=== PATIENT | female | born 1950 | race Caucasian/White ===

== ENCOUNTER 2016-10-08 12:49 | Day surgery (SDC) | payer MEDICARE, OTHER, MEDICAID ==
[~2016-10-08] VITALS: Ht 167.6 cm; Wt 73.5 kg
[~2016-10-08 12:49] MED LIST: 0.9% Sodium Chloride 1,000 ML IV SCH; Sodium Chloride LOK Flush 10 mL Syringe IV PRN; fentaNYL-PF 50 mCg/mL 2 mL Inj IVPUSH PRN
[2016-10-08 13:05] VITALS: BP 161/90; PULSE 87; RESP 16; O2SAT 97
[2016-10-08] MEDS ORDERED: SYN75 PO (13:05)
[2016-10-08] MEDS ORDERED: THYR25PO4 MC (13:05)
[2016-10-08] MEDS ORDERED: SERT50TA PO (13:05)
[2016-10-08 14:05] VITALS: BP 114/65; PULSE 65; RESP 15; O2SAT 94
[2016-10-08 14:15] VITALS: BP 102/64; PULSE 60; RESP 15; O2SAT 93
[2016-10-08 14:25] VITALS: BP 102/60; PULSE 58; RESP 15; O2SAT 94
--- NOTE | 2016-10-08 14:31 | ENDO ---
[address] [address] ENDOSCOPY PROCEDURE PATIENT: GEOVANY VAZQUEZ : 1950 MR#: [id number] ADMIT: 10/08/2016 JOB ID: [id number] DATE: 10/08/2016 PRIMARY PROVIDER: Walt Tinsley MD PROCEDURE: Esophagogastroduodenoscopy and a colonoscopy. INDICATIONS: A 65-year-old female with a history of cirrhosis reporting for variceal screening. She additionally has a remote history of rectal cancer status post XRT and low anterior resection with primary anastomosis back in around 1999. She has had intermittent incontinence of feces. Following our discussion in clinic, she has actually had some improvement with the initiation of fiber supplementation. EQUIPMENT: GIF H 180 and a PCF H 180 AL. SEDATION: 1. 8 mg Versed. 2. 175 mcg fentanyl. COMPLICATIONS: None identified. BOWEL PREPARATION: Fair, adequate examination. PROCEDURAL INFORMATION: After the risks and benefits were explained, written and verbal informed consent was obtained. The patient was brought into the endoscopy suite and placed into the left lateral decubitus position. Sedation was achieved using the above-stated medications with the addition of oxygen via nasal cannula. The scope was introduced into the mouth through the bite block, and advanced to the second portion of the duodenum. The scope was slowly withdrawn to carefully examine the mucosa for any defects or lesions. Retroflexed views were accomplished in the stomach. The stomach was decompressed. Scope removed from the patient who tolerated the procedure reasonably well. The patient was then turned around. A digital rectal examination accomplished. No significant pathology was appreciated. Minimal internal hemorrhoidal cushions. No mass lesions detected. The scope was then introduced into the rectum and advanced under direct visualization to the cecum as identified by the appendiceal orifice and ileocecal valve. The terminal ileum was briefly accessed. The scope then slowly withdrawn to carefully examine the mucosa for any defects or lesions. Multiple direct views were made through the dentate line for exclusion of pathology. The colon was decompressed. The scope removed from the patient who tolerated the procedure well. FINDINGS: 1. Duodenum: This appeared visually normal from the bulb through to the second portion. 2. Stomach: No outlet obstruction. No ulcers. No mass lesions. Mild diffuse gastropathy seen throughout consistent with underlying portal hypertension. No evidence of gastric varices. The patient had otherwise no other significant gastric pathology. 3. Esophagus: The squamocolumnar junction correlated with the top of the gastric folds. The GEJ was at about 35 cm from the incisors. No acute erosive changes. No strictures. No mass lesions. The patient had evidence of grade 1 distal esophageal varices without stigmata of recent bleeding and no high risk areas. 4. Terminal ileum: This appeared visually normal. 5. Colon: No significant polyps, mass lesions throughout. At somewhere in the neighborhood of 10 cm in, and end-to-end colorectal anastomosis was encountered. This was mildly stenotic but did not impede passage of the scope through this area. There did appear to be a very slight element of scattered erythema and some friability consistent with radiation-induced proctopathy. By the end of the procedure, the scope having traversed this region, definitely induced some mild self-limited bleeding at the level of the anastomosis. This all seemed to cease spontaneously without need for endoscopic intervention. ENDOSCOPIC DIAGNOSES: 1. Mild portal hypertensive gastropathy. 2. Hiatal hernia (not mentioned above). 3. Grade 1 distal esophageal varices. 4. Mild hemorrhoids. 5. Mildly stenotic colorectal anastomosis. 6. 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 RECOMMENDATIONS: 1. Repeat EGD in two years for variceal surveillance. 2. The patient is encouraged to increase fiber supplementation. I suspect this is the primary source for the intermittent incontinence. She is encouraged to avoid Imodium. 3. Follow up on clinical efficacy in the next 6-8 weeks would be appropriate.
== END 2016-10-08 23:59 | disposition home or self-care (01) ==
LOC: END 12:49
PROVIDERS: ATTEND Internal Medicine Gastroenterology
DX: K62.7 Radiation proctitis (principal); R15.9 Full incontinence of feces; K76.6 Portal hypertension; I85.10 Secondary esophageal varices without bleeding; K74.60 Unspecified cirrhosis of liver; K44.9 Diaphragmatic hernia without obstruction or gangrene; Z85.048 Personal history of other malignant neoplasm of rectum, rectosigmoid junction, and anus
CPT/HCPCS: 43235; 45378; 99153; G0500; J2250; J3010; J7030

== ENCOUNTER 2017-03-02 11:43 | Day surgery (SDC) | payer MEDICARE, OTHER, MEDICAID ==
[~2017-03-02] VITALS: Ht 165.1 cm; Wt 79.4 kg
[~2017-03-02 11:43] MED LIST changes: +SERT50TA PO; +THYR97.5 PO
[2017-03-02 12:40] VITALS: BP 119/70; PULSE 72; RESP 14; O2SAT 98
[2017-03-02 14:35] VITALS: BP 100/68; PULSE 57; RESP 16; O2SAT 95
[2017-03-02 14:45] VITALS: BP 116/65; PULSE 58; RESP 16; O2SAT 95
[2017-03-02 14:57] VITALS: BP 112/63; PULSE 57; RESP 16; O2SAT 95
--- NOTE | 2017-03-02 21:52 | ENDO ---
[address] [address] ENDOSCOPY PROCEDURE PATIENT: GEOVANY VAZQUEZ : 1950 MR#: [id number] ADMIT: 03/02/2017 JOB ID: [id number] DATE OF PROCEDURE: 03/02/2017 PRIMARY PROVIDER: Walt Tinsley MD. PROCEDURE: Flexible sigmoidoscopy under fluoroscopy. with balloon dilatation, biopsy and APC ablation. INDICATIONS: A 66-year-old female with a history of rectal cancer status post XRT and low anterior resection with primary anastomosis in 1999. She has had increasing challenges with fecal incontinence and did not seem to respond to HBOT. She has a history of anastomotic stenosis and returns today for empiric dilatation. EQUIPMENT: [id number]. SEDATION: 1. Versed 5 mg. 2. Fentanyl 100 mcg. COMPLICATIONS: None identified. PROCEDURE INFORMATION: After the risks and benefits were explained, written and verbal informed consent was obtained. The patient was brought into the endoscopy suite and placed into the left lateral decubitus position. Sedation was achieved as above. Digital rectal examination did not disclose any significant anal pathology. The patient was a little uncomfortable after her Fleet's enemas and with the anal exam but with no palpable lesions appreciated. The scope was introduced into the rectum and there was definitely some mucosal abrasion from the previously inserted Fleet's enemas. No significant proctitis, perhaps very minimal radiation induced proctitis at best. At around 10 cm there was an ulcerated circumferential stenosis at the anastomosis. I did not appreciate any obvious neoplasia effects. My suspicion was that this is probably a consequence of stool induced stasis changes being forced through this small opening. I was able to navigate the pediatric colonoscope up into the lucian sigmoid. We then passed a wire and sequentially dilated using the 12-15 mm balloon, then the 15-18 mm balloon. We did not see much waste at all with the 18. We then upsized to the 18-20 balloon and at 19 mm the patient did have some mild discomfort with the stretch. We elected to stop at 19 in that we had induced a moderate rent in the mucosa through the stenotic region with no sustained hemorrhage. I took a small biopsy on the other side of the anastomosis for histopathologic analysis. This demonstrated persistent oozing of blood and did not respond to application of the hot forceps, nor APC using right colon settings and a circumferential probe. It seemed that every application of the APC seemed to perpetuate and maybe make the bleeding worse. We therefore just waited out for between 5 and 8 minutes until hemostasis was confirmed. ENDOSCOPIC DIAGNOSIS: Ulcerated colorectal anastomosis at 10 cm status post dilatation to 19 mm. RECOMMENDATIONS: 1. Await histopathology. 2. The patient is encouraged to again initiate fiber supplement with 2 tablespoons of ground flaxseed fiber mixed with 8 ounces of water or juice once or twice daily so that there is a soft complete elimination of stool daily. 3. Follow up in my office in four weeks to review clinical response.
--- NOTE | 2017-03-06 10:26 | PATH ---
SURGICAL PATHOLOGY Attending Physician:Pratima Yi CASE STATUS: Signed Out PATIENT NAME: GEOVANY VAZQUEZ PID: [id number] : 1950 DATE COLLECTED:03/02/2017 00:00 SPECIMEN: Colon, Biopsy CLINICAL HISTORY: [facility] COLON CANCER 1). ANASTOMOSIS COLON BIOPSY FINAL DIAGNOSIS: 1.ANASTOMOSIS COLON, BIOPSY: INFLAMED AND ERODED PORTION OF COLORECTAL MUCOSA WITH FEATURES OF ISCHEMIC CHANGE; NEGATIVE FOR DYSPLASIA AND MALIGNANCY. ICD10 Z85.038 GROSS DESCRIPTION: The specimen is received in one formalin filled container labeled with the patient's name, sublabeled "anastomosis colon" and consists of a 0.2 x 0.2 x 0.2 CM portion of tissue which is entirely submitted in one cassette. 03/03/2017DC MICRO DESCRIPTION: See diagnosis. ICD-9 CODES: CPT CODES: 1: 63007 Electronically Signed Out Korina Elizondo MD [facility] [address], [place] [address] Technical component performed at [facility], [address] [place] [address] Ave[address], [address]
== END 2017-03-02 23:59 | disposition home or self-care (01) ==
LOC: END 11:43
PROVIDERS: ATTEND Internal Medicine Gastroenterology
DX: K63.3 Ulcer of intestine (principal); K74.60 Unspecified cirrhosis of liver; R15.9 Full incontinence of feces; Z85.048 Personal history of other malignant neoplasm of rectum, rectosigmoid junction, and anus; Z92.3 Personal history of irradiation
CPT/HCPCS: 45331; 45340; 76000; 99153; G0500; J2250; J3010; J7030; Q9967